=== PATIENT | female | born 1985 | race Caucasian/White ===

== ENCOUNTER 2021-10-12 07:57 | Outpatient (CLI) | payer BC, SELFPAY ==
--- NOTE | 2021-10-12 08:15 | CRLHL7_ITS ---
For Patients: As a result of the Cures Act, medical imaging exams and procedure reports are released immediately into your electronic medical record. You may view this report before your referring provider. If you have questions, please contact your health care provider. INDICATION: First trimester scan, establish dates. COMPARISON: None. TECHNIQUE: Real-time nichole-scale imaging of the pelvis was performed. FINDINGS: Sonographic imaging demonstrates a single living intrauterine gestation. The embryo demonstrates a regular cardiac rate measuring 71 beats per minute. The embryo`s crown-rump length measurement of 1.8 cm corresponds to a gestational age of 8 weeks 2 days with a sonographic due date of 05/22/2022. There is a normal-appearing yolk sac. There are no gross abnormalities noted within the embryo at this early state of development. The gestational sac has a normal appearance. There is no evidence of a perigestational hemorrhage. The amount of fluid within the sac appears appropriate for gestational age. The cervix is closed. The myometrium appears normal. Normal left ovary. Right ovary enlarged measuring 5.5 x 4.1 cm. Complex heterogeneously hyperechoic cyst right ovary measuring 5.0 x 4.3 x 4.8 cm. Free fluid noted within the left adnexa. IMPRESSION: Single living intrauterine with sonographic gestational age 8 weeks 2 days and sonographic due date 05/22/2022. Complex right ovarian cyst measuring 5 cm, possibly representing a dermoid. Dictated by Brannon Baig MD @ 10/12/2021 9:22:28 AM (Electronically Signed)
== END 2021-10-12 07:58 | disposition home or self-care (01) ==
LOC: US 07:59
PROVIDERS: Visit Provider Advanced Practice Midwife
DX: Z34.91 Encounter for supervision of normal pregnancy, unspecified, first trimester (principal); O34.81 Maternal care for other abnormalities of pelvic organs, first trimester; N83.291 Other ovarian cyst, right side; Z3A.08 8 weeks gestation of pregnancy
CPT/HCPCS: 76817

== ENCOUNTER 2021-10-12 09:53 | Outpatient (CLI) | payer BC, SELFPAY ==
[2021-10-12 13:13] LABS: Hepatitis B Surface Antigen* Negative (Negative)
[2021-10-12 13:30] LABS: Hepatitis C Virus Antibody* Negative (Negative)
[2021-10-12 13:40] LABS: HIV 1/2/P24 Combo Screen* Negative (Negative)
[2021-10-12 14:15] LABS: Chlamydia DNA Amplified* NOT DETECTED (No Detected); GC DNA Amplified* NOT DETECTED (No Detected)
[2021-10-14 01:07] LABS: Rubella Antibody IgG 8.6 IU/mL
[2021-10-14 01:19] LABS: Rapid Plasma Reagin (RPR) Non Reactive (Non Reactive)
== END 2021-10-12 09:54 | disposition home or self-care (01) ==
PROVIDERS: Visit Provider Advanced Practice Midwife
DX: Z34.91 Encounter for supervision of normal pregnancy, unspecified, first trimester (principal); O34.81 Maternal care for other abnormalities of pelvic organs, first trimester; N83.291 Other ovarian cyst, right side; Z3A.08 8 weeks gestation of pregnancy
CPT/HCPCS: 76817; 86592; 86703; 86762; 86803; 86850; 86900; 86901; 87086; 87340; 87491; 87591

== ENCOUNTER 2022-01-09 10:46 | Outpatient (CLI) | payer BC, SELFPAY ==
--- NOTE | 2022-01-09 11:00 | CRLHL7_ITS ---
For Patients: As a result of the Century Cures Act, medical imaging exams and procedure reports are released immediately into your electronic medical record. You may view this report before your referring provider. If you have questions, please contact your health care provider. INDICATION: Evaluate anatomy. COMPARISON: 10/12/2021 TECHNIQUE: Real time nichole scale imaging of the fetus was performed as well as color Doppler analysis of the umbilical vessels. FINDINGS: Sonographic imaging demonstrates a single living intrauterine gestation. Fetus demonstrates a regular cardiac rate of 150 beats per minute. Fetus has a vertex position. The placenta lies posteriorly. The edge of the placenta is located 1.7 cm from the internal cervical os on transvaginal imaging. Amniotic fluid volume appears normal. Single deepest vertical pocket: 4.6 cm. The cervix is closed and measures 3.0 cm in length. The composite ultrasound gestational age is calculated at 21 weeks 2 days with an estimated sonographic due date of 05/20/2022. The estimated weight is 375 grams which lies at the 20th %. The following biometric measurements were obtained: Biparietal diameter: 4 point a cm/20 weeks 3 days 15th% Head circumference: 18.4 cm/20 weeks 6 days 20th% Abdominal circumference: 15.6 cm/20 weeks 5 days 26th% Femur length: 3.4 cm/20 weeks 6 days 25th% The HC/AC ratio measures: 1.18 range (1.06-1.24) On anatomic survey, there is a normal appearance of the cerebral ventricles, cavum septi pellucidi, cisterna magna and cerebellum. The nose, lips, and facial profile appear normal. The cervical, thoracic and lumbar spine are well visualized and appear normal. There is a normal four-chamber heart view and the left and right ventricular outflow tracts appear normal. The diaphragm and stomach appear normal. The kidneys and bladder also appear normal. There is a normal three-vessel cord and cord insertion site. The four extremities appear normal. IMPRESSION: Normal OB ultrasound exam with concordance of clinical and sonographic dating. No intrinsic abnormalities noted on anatomic survey. Dictated by Brannon Baig MD @ 01/09/2022 12:22:46 PM (Electronically Signed)
== END 2022-01-09 10:47 | disposition home or self-care (01) ==
LOC: US 10:50
PROVIDERS: Visit Provider Advanced Practice Midwife
DX: Z34.92 Encounter for supervision of normal pregnancy, unspecified, second trimester (principal); Z3A.17 17 weeks gestation of pregnancy
CPT/HCPCS: 76805; 76817

== ENCOUNTER 2022-03-12 13:10 | Outpatient (CLI) | payer BC, SELFPAY ==
--- NOTE | 2022-03-12 13:00 | CRLHL7_ITS ---
For Patients: As a result of the Cures Act, medical imaging exams and procedure reports are released immediately into your electronic medical record. You may view this report before your referring provider. If you have questions, please contact your health care provider. INDICATION: Low lying placenta. TECHNIQUE: Ultrasound OB pelvis transabdominal and transvaginal. Real time nichole scale imaging of the fetus was performed. COMPARISON: None. FINDINGS: Sonographic imaging demonstrates a single living intrauterine gestation. Fetus demonstrates a regular cardiac rate of 150 beats per minute. Fetus has a vertex orientation. The placenta lies posteriorly without evidence of placenta previa. The placenta is noted to be low lying with the placental edge approximately 3.9 cm from the internal os. Amniotic fluid volume appears normal. Single deepest vertical pocket: 3.8 cm. The composite ultrasound gestational age is calculated at 29 weeks 4 days with an estimated sonographic due date of 05/24/2022. The estimated weight is 1409 grams which lies at the 19%. The following biometric measurements were obtained: Biparietal diameter: 7.3 cm, 29 weeks 1 day Head circumference: 27.4 cm, 30 weeks Abdominal circumference: 24.9 cm, 29 weeks 1 day Femur length: 5.7 cm, 30 weeks IMPRESSION: 1. Single living intrauterine gestation. Composite ultrasound gestational age of 29 weeks 4 days with estimated sonographic due date of 05/24/2022. 2. Low-lying placenta with placental edge approximately 3.9 cm from the internal os. Recommend attention on follow-up imaging. Dictated by Román Arana MD @ 03/14/2022 8:01:40 PM (Electronically Signed) ----- ADDENDUM ----- ADDENDUM: The placenta lies 3.9 cm from the os. This is within normal limits and not low- lying. Dictated by Román Arana MD @ Mar 27 2022 9:15AM Signed by:?Román Arana MD @03/14/2022 8:01:40 PM (Electronic Signature)
== END 2022-03-12 13:11 | disposition home or self-care (01) ==
LOC: US 13:11
PROVIDERS: Visit Provider Physician Assistant
DX: O44.42 Low lying placenta NOS or without hemorrhage, second trimester (principal)
CPT/HCPCS: 76816; 76817; 86592

== ENCOUNTER 2022-03-22 08:57 | Outpatient (CLI) | payer BC, SELFPAY ==
[2022-03-22 09:06] LABS: Glucose Fasting Check 73 mg/dl (60-115)
[2022-03-22 12:40] LABS: Glucose 1 Hour Gest 166 mg/dl (70-180)
[2022-03-22 12:41] LABS: Glucose GTT-Gestational 3 Hr 72 mg/dl (70-140)
== END 2022-03-22 08:58 | disposition home or self-care (01) ==
LOC: NFLDREF 08:57
PROVIDERS: Visit Provider Advanced Practice Midwife
DX: Z34.93 Encounter for supervision of normal pregnancy, unspecified, third trimester (principal); Z3A.32 32 weeks gestation of pregnancy
CPT/HCPCS: 82951; 82952

== ENCOUNTER 2022-04-12 21:56 | Outpatient (CLI) | payer BC, SELFPAY ==
[2022-04-12 22:30] VITALS: BP 124/74; PULSE 71; RESP 16; TEMP 36.8
[2022-04-12 22:49] LABS: Appearance Urine Clear (Clear); Bilirubin Urine Negative (Negative); Blood Urine Trace-intact (Negative); Color Urine Yellow (Yellow); Glucose Urine Negative (Negative); Ketones Urine Negative (Negative); Leukocyte Esterase Urine Negative (Negative); Nitrite Urine Negative (Negative); Protein Urine Negative (Negative); Urobilinogen Urine 0.2 (0.2-1.0); pH Urine 6.5 (5.0-8.5)
[2022-04-12 23:00] LABS: Amorphous Sediment Urine Few; Bacteria Urine Few; RBC Urine 0-2 (0-2); Squamous Epithelial Cell Urine Few (None-Few); WBC Urine 0-2 (0-5)
--- NOTE | 2022-04-12 23:20 | CRLHL7_ITS ---
For Patients: As a result of the Cures Act, medical imaging exams and procedure reports are released immediately into your electronic medical record. You may view this report before your referring provider. If you have questions, please contact your health care provider. INDICATION: Right sided flank, abdominal pain TECHNIQUE: Ultrasound abdomen limited. Sonographic images of the right upper quadrant were obtained using nichole-scale and color Doppler images. COMPARISON: None FINDINGS: Liver: The liver parenchyma is normal in echotexture. Gallbladder: No gallstones or sludge seen in the lumen. The gallbladder wall is normal in appearance. No pericholecystic fluid is present. No sonographic Fierro???s sign is present. Common bile duct: 4 mm. No intrahepatic biliary ductal dilatation seen. Pancreas: The visualized portions of the pancreatic head and body are normal in appearance. Right Kidney: 11.3 cm. Trace right renal pelviectasis is seen. Vascular: The visualized abdominal aorta and IVC are unremarkable. The visualized portal vein is patent with normal anterograde flow. Miscellaneous: There is a heterogeneous echogenic oval lesion in the right lower quadrant measuring 5 x 3.8 cm. IMPRESSIONS: 1. Trace right renal pelviectasis is seen. 2. There is a heterogeneous echogenic oval lesion in the right lower quadrant measuring 5 x 3.8 cm. Assessment with outpatient pelvic MRI or CT is recommended. Dictated by Russell Castillo MD @ 04/13/2022 1:38:42 AM Dictated by: Russell Castillo MD @ 04/13/2022 01:38:45 (Electronically Signed)
--- NOTE | 2022-04-13 00:12 | P.OBO_ITS ---
OB Outpatient HPI History of Present Illness History of Present Illness: Angelica is a 36 yo at 34 5/7 weeks gestation by LMP, ZACHARY 05/20/2022, presents with right lower/mid back pain that wraps around her abdomen. It started around noon today and has increased in intensity throughout the day and is more wave like. Since arrival she has noted more pain in her front lower abdomen and less in her back. She is voiding, has more frequency but feels this is related to . She denies other UTI concerns including burning, itching, blood, or urgency. She is rating the pain 6/10. She denies any abnormal vaginal discharge. She also denies fevers, chills, body aches, and n/v. She denies noticing contractions. Patient reports she has been taking tums for heartburn and does take a daily calcium supplement. Last took tums about 2 weeks ago. On evaluation post US, she report symptoms have remained minimally changed but more lower right abdominal pain than back pain. OB PROBLEM LIST 1. Rubella NON immune. Needs vaccine PP 2. Hx of breast augmentation, under the muscle, nipple intact 3. Low lying placenta, 1.7 cm from internal os. RESOLVED F/u US 28 weeks: Resolved: 3.9cm from OS on 03/12/22. Waiting on radiology to correct documentation for resolved low-lying. Baby moving naturally: Yes Bleeding: No Contractions: No Leaking fluid: No Discharge: No Heartburn: No Back pain: Yes (wave like) Meds Home Medications and Allergies Home Medications Medication Instructions Recorded Confirmed Type prenat.vits,joni,uzy-vpvy-tlzmb 1 tab PO QDAY 10/12/21 04/12/22 History calcium citrate 200 mg (950 mg) 650 mg PO QDAY 11/09/21 04/12/22 History tablet ferrous sulfate 325 mg (65 mg 325 mg PO Q OTHER DAY 03/26/22 04/12/22 History iron) tablet Allergies Allergy/AdvReac Type Severity Reaction Status Date / Time seasonal Allergy Mild Congested Uncoded 04/10/22 14:13 [facility] Surgical History (Updated 10/17/21 @ 11:07 by Elsy Roberson CNM) H/O breast augmentation Family History (Updated 10/17/21 @ 11:11 by Elsy Roberson CNM) Mother Breast cancer Father Clotting disorder Paternal Grandfather Leukemia Maternal Grandfather Dementia Social History Smoking Status: Never smoker Little interest or pleasure in doing things: not at all Feeling down, depressed, or hopeless: not at all History History 1 Elective abortions 0 Para 0 Spontaneous abortions 0 Hx # Term Pregnancies 0 Ectopic pregnancies Hx # Pregnancies 0 Multiple births Number of Living Children OB - H&P: Exam Physical Exam Vital signs: Pulse BP 71 124/74 04/12/22 22:30 04/12/22 22:30 Narrative: Pulse Rate 71 04/12/22 22:30 Blood Pressure 124/74 04/12/22 22:30 Blood Pressure Mean 90 04/12/22 22:30 Constitutional Constitutional: moderate distress, average body habitus and cooperative Comments: Calm between waves of pain Routine HEENT Exam Head: Present atraumatic Routine Abdominal Exam Abdominal: Present soft and tenderness (Right lower abdomen to midline pelvis); Absent rebound Detailed Labor and Delivery Exam Patient Gravid: Yes Comments: Irritability noted on external contraction monitor Fetus (Single) Amniotic Membrane Status: intact Heart Rate Baseline: 130 Monitor Accelerations: Present Monitor Decelerations: None Mcfp Variability: Moderate (6-25) Routine Back/Spine/Pelvis Exam Back/Spine: full ROM Routine Skin Exam Present intact Routine Neurological Exam Present alert and oriented X3 Routine Psychiatric Exam Present normal affect and normal thought process Labs Labs Laboratory Tests WBC 9.75 K/uL (4.50-11.00) 04/13/22 01:15 RBC 3.44 m/uL (4.00-5.20) L 04/13/22 01:15 Hgb 10.8 gm/dL (12.0-16.0) L 04/13/22 01:15 Hct 31.9 % (33.0-51.0) L 04/13/22 01:15 MCV 93 fL (80-100) 04/13/22 01:15 MCH 31 pg (26-34) 04/13/22 01:15 MCHC 34 gm/dL (32-36) 04/13/22 01:15 RDW Coeff of Wolfgang 12.4 % (11.5-15.5) 04/13/22 01:15 Plt Count 235 K/uL (140-440) 04/13/22 01:15 Neut % (Auto) 76.1 % (42.0-72.0) H 04/13/22 01:15 Lymph % (Auto) 17.4 % (20-44) L 04/13/22 01:15 [place] % (Auto) 5.3 % (0.0-11.0) 04/13/22 01:15 Eos % (Auto) 0.6 % (0.0-7.0) 04/13/22 01:15 Baso % (Auto) 0.2 % (0.0-3.0) 04/13/22 01:15 Neut # (Auto) 7.40 K/uL (1.7-7.0) H 04/13/22 01:15 Lymph # (Auto) 1.70 K/uL (0.90-2.90) 04/13/22 01:15 [place] # (Auto) 0.50 K/UL (0.00-0.90) 04/13/22 01:15 Eos # (Auto) 0.06 K/uL (0.00-0.50) 04/13/22 01:15 Baso # (Auto) 0.02 K/uL (0.00-0.30) 04/13/22 01:15 Urine Color Yellow (Yellow) 04/12/22 22: Urine Appearance Clear (Clear) 04/12/22 22: Urine pH 6.5 (5.0-8.5) 04/12/22 22:32 Ur Specific [place] 1.020 (1.000-1.030) 04/12/22 22:32 Urine Protein Negative (Negative) 04/12/22 22: Urine Glucose (UA) Negative (Negative) 04/12/22 22:32 Urine Ketones Negative (Negative) 04/12/22 22:32 Urine Blood Trace-intact (Negative) A 04/12/22 22: Urine Nitrite Negative (Negative) 04/12/22: Urine Bilirubin Negative (Negative) 04/12/22 22: Urine Urobilinogen 0.2 (0.2-1.0) 04/12/22 22:32 Ur Leukocyte Esterase Negative (Negative) 04/12/22 22:32 Urine RBC 0-2 (0-2) 04/12/22 22:32 Urine WBC 0-2 (0-5) 04/12/22 22:32 Ur Squamous Epith Cells Few (None-Few) 04/12/22 22:32 Amorphous Sediment Few (None) A 04/12/22 22:32 Urine Bacteria Few (None) A 04/12/22 22:32 Assessment and Plan Assessment and plan (1) Hydronephrosis of right kidney: Problem comment: Mild Status: Acute (2) Kidney stone complicating : Status: Acute (3) Acute flank pain: Status: Acute (4) Lower abdominal pain: Status: Acute Plan Assessment Hydronephrosis of right kidney, mild Suspected Kidney stone Acute flank pain Lower abdominal pain Plan Urine analysis and bedside US for suspected kidney stone. Consistent finding without actual visualization of stone(s), could be in ureter or moving through renal system. Reviewed this with patient. Recommended increased oral hydrations for next 24-48 hours to flush stone out, straining urine, and pain medications as needed. She declines them at this time. Ultrasound report shows mild hydronephrosis, no other abnormal findings with exception of echogenic area in right ovary, consistent with previous US findings and unchanged. Can not entirely rule out other causes of abdominal pain including appendicitis but unlikely given labs and US findings. Reviewed warning s/sx of infection, worsening pain, or increasing associated symptoms such as n/v. Instructed when to seek emergent care. Recommended follow- up in clinic next week. Can consider referral to nephrology if symptoms have not improved with oral hydration. Discussed work note with patient, feels she does not need at this time but will reach out if she does need one. Time Spent with Patient Time with Patient: less than 15 minutes Imaging Imaging Imaging: Abdominal Ultrasound FINDINGS: Liver: The liver parenchyma is normal in echotexture. Gallbladder: No gallstones or sludge seen in the lumen. The gallbladder wall is normal in appearance. No pericholecystic fluid is present. No sonographic Fierro???s sign is present. Common bile duct: 4 mm. No intrahepatic biliary ductal dilatation seen. Pancreas: The visualized portions of the pancreatic head and body are normal in appearance. Right Kidney: 11.3 cm. Trace right renal pelviectasis is seen. Vascular: The visualized abdominal aorta and IVC are unremarkable. The visualized portal vein is patent with normal anterograde flow. Miscellaneous: There is a heterogeneous echogenic oval lesion in the right lower quadrant measuring 5 x 3.8 cm. IMPRESSIONS: 1. Trace right renal pelviectasis is seen. 2. There is a heterogeneous echogenic oval lesion in the right lower quadrant measuring 5 x 3.8 cm. Assessment with outpatient pelvic MRI or CT is recommended. Dictated by Russell Castillo MD @ 04/13/2022 1:38:42 AM For comparison, Previous 1st trimester US (10/12/2021) IMPRESSION: Single living intrauterine with sonographic gestational age 8 weeks 2 days and sonographic due date 05/22/2022. Complex right ovarian cyst measuring 5 cm, possibly representing a dermoid. Dictated by Brannon Baig MD @ 10/12/2021 9:22:28 AM
[2022-04-13 01:21] LABS: Basophils Absolute Auto 0.02 K/uL (0.00-0.30); Basophils Percent Auto 0.2 % (0.0-3.0); Eosinophils Absolute Auto 0.06 K/uL (0.00-0.50); Eosinophils Percent Auto 0.6 % (0.0-7.0); Hematocrit 31.9 % (33.0-51.0); Hemoglobin* 10.8 gm/dL (12.0-16.0); Immature Granulocytes Abs Auto 0.04 K/uL (0.00-0.30); Immature Granulocytes Pct Auto 0.4 %; Lymphocytes Percent Auto 17.4 % (20-44); Mean Corpuscular HGB Conc 34 gm/dL (32-36); Mean Corpuscular Hemoglobin 31 pg (26-34); Mean Corpuscular Volume 93 fL (80-100); Monocytes Percent Auto 5.3 % (0.0-11.0); Neutrophils Percent Auto 76.1 % (42.0-72.0); Platelet Count* 235 K/uL (140-440); RDW Coefficient of Variation % 12.4 % (11.5-15.5); Red Blood Count 3.44 m/uL (4.00-5.20); White Blood Count* 9.75 K/uL (4.50-11.00)
[2022-04-13 01:23] LABS: Slide Review Reflex No
--- NOTE | 2022-04-13 02:06 | PC.OBNST ---
NST Note NST Note Start: 04/12/22 22:15 Freq: ONCE Status: Active Protocol: Document 04/13/22 02:04 AM (Rec: 04/13/22 02:06 AM [id number]) NST Note 1 Para (# of births) 0 EDC 05/20/22 Gestational Age In Weeks & Days 34 Weeks & 5 Days Patient Presented with Complaint(s) of Pain If Pain, describe location Right flank to anterior abd pain. Reactive Yes Appropriate for Gestational Age Yes RN Gabby RNC Date 04/13/22 Reactive Yes Appropriate for Gestational Age Yes RN Dusty RN Date 04/13/22 OB NST charge Yes Complete NST Note via Write Note Yes The provider's electronic signature indicates the NST is reactive/appropriate for gestational age. *Note to provider: If an addendum is required, open the patient's chart and click on the note under the Nurse/Allied Health tab.
== END 2022-04-13 02:00 | disposition home or self-care (01) ==
LOC: OB OUT 21:57 → OB 21:59
PROVIDERS: Visit Provider Advanced Practice Midwife
DX: O44.43 Low lying placenta NOS or without hemorrhage, third trimester (principal); Z3A.29 29 weeks gestation of pregnancy
CPT/HCPCS: 36415; 59025; 76705; 81003; 81015; 85025; 87086; 99213

== ENCOUNTER 2022-04-23 15:52 | Outpatient (CLI) | payer BC, SELFPAY ==
[2022-04-24 13:42] LABS: Strep B DNA Probe NEGATIVE (Negative)
[2022-04-24 13:44] LABS: Strep B Pen/Amox Allergy No
== END 2022-04-23 15:53 | disposition home or self-care (01) ==
LOC: NFLDREF 15:53
PROVIDERS: Visit Provider Advanced Practice Midwife
DX: Z34.03 Encounter for supervision of normal first pregnancy, third trimester (principal)
CPT/HCPCS: 87081; 87653

== ENCOUNTER 2022-05-06 06:52 | Outpatient (CLI) | payer BC, SELFPAY ==
[2022-05-06 07:04] VITALS: PULSE 70; O2SAT 99
[2022-05-06 07:07] VITALS: BP 106/65; PULSE 74; TEMP 36.6
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
== END 2022-05-06 10:10 | disposition home or self-care (01) ==
LOC: OB OUT 06:53 → OB 06:53
PROVIDERS: Visit Provider Advanced Practice Midwife
DX: O36.5930 Maternal care for other known or suspected poor fetal growth, third trimester, not applicable or unspecified (principal); Z3A.36 36 weeks gestation of pregnancy
CPT/HCPCS: 59025; 99213

== ENCOUNTER 2022-05-07 09:57 | Outpatient (CLI) | payer BC, SELFPAY ==
--- NOTE | 2022-05-07 10:15 | CRLHL7_ITS ---
For Patients: As a result of the Century Cures Act, medical imaging exams and procedure reports are released immediately into your electronic medical record. You may view this report before your referring provider. If you have questions, please contact your health care provider. INDICATION: Third trimester scan, evaluate growth. small for gestational age COMPARISON: 03/12/2022 TECHNIQUE: Real time nichole scale imaging of the fetus was performed. FINDINGS: Sonographic imaging demonstrates a single living intrauterine gestation. Fetus demonstrates a regular cardiac rate of 129 beats per minute. Fetus has a vertex position. The placenta lies fundal posterior. Amniotic fluid volume appears normal and there is a single deepest vertical pocket: 6.6 cm. The estimated weight is 2966gm which lies at the 24th %. On the prior OB ultrasound exam dated 03/12/2022 the estimated weight was at the 19th%. BPD 24th percentile. HC 26th percentile. AC 25th percentile. FL 8th percentile. The HC/AC ratio measures 1.02 range (0.92-1.06). IMPRESSION: Sonographic gestational age 36 weeks 5 days and sonographic due date 05/30/2022. Sonographic age 10 days behind the clinical age. Estimated weight 24th percentile. Abdominal circumference 25th percentile. Dictated by Brannon Baig MD @ 05/07/2022 11:46:46 AM (Electronically Signed)
== END 2022-05-07 09:58 | disposition home or self-care (01) ==
LOC: US 09:57
PROVIDERS: Visit Provider Advanced Practice Midwife
DX: O36.5930 Maternal care for other known or suspected poor fetal growth, third trimester, not applicable or unspecified (principal); Z3A.36 36 weeks gestation of pregnancy
CPT/HCPCS: 76816

== ENCOUNTER 2022-05-26 00:26 | Inpatient (IN) | payer BC, SELFPAY ==
[2022-05-26] VITALS (27 sets, daily range): BP systolic 79–138; BP diastolic 38–105; PULSE 61–137; RESP 16–18; TEMP 36.5–36.9; O2SAT 96
--- NOTE | 2022-05-26 00:25 | P.LDBA_ITS ---
Documented by User: Beck Muñoz 05/26/22 00:40 Subjective History of Present Illness Date Seen: 05/26/22 Narrative: Angelica is being admitted to Labor and Delivery for labor. She is a 36 year old at 40.6 weeks gestation. Contractions began on 05/25/22 around 0900, she denies leaking of fluid is supported by her partner and a alternative education teacher. Her full history and physical done 05/01/22 by Sindhu Roland CNM 1. Rubella NON immune. Needs vaccine PP 2. Hx of breast augmentation, under the muscle, nipple intact 3. Low lying placenta, 1.7 cm from internal os. RESOLVED F/u US 28 weeks: Resolved: 3.9cm from OS on 03/12/22. 4. Kidney stone, RESOLVED 04/17/2022. Seen in OB triage, home measures for relief 5. Measuring small for dates 05/07/2022: EFW 24%ile OB - Problem Based A/P Additional Plan (1) 40 weeks gestation of : Status: Acute (2) Pain during labor: Status: Acute (3) [id number] fetus: Status: Acute Plan ASSESSMENT:? 36 at 40.6 weeks gestation? complicated by:?Rubella nonimmune, measuring small for dates, Hx of breast augmentation, kidney stones during Labor type: Spontaneous, Early labor? Category 1 FHR pattern.?? Labor complicated by: NA? GBS negative? ? PLAN:? 1. Routine intrapartum cares as ordered. Continue with expectant management? 2. Monitoring per policy, intermittent? 3. Planning unmedicated . Desires water . Consent signed. Hep C negative. Candidate for analgesia of choice.?? 4. Patient encouraged to reposition and ambulate to promote physiologic labor and .? 5. Anticipate Delivery/Labor/Induction Plan Plan: expectant management OB Exam Physical Exam Vital signs: Pulse BP Pulse Ox 66 114/72 96 05/26/22 00:01 05/26/22 00:01 05/26/22 00:01 Narrative: Vitals Reviewed? Psychiatric:? Alert and oriented x3? HEENT:? Normocephalic, atraumatic? Neck:? Supple?? Lungs:? Clear to auscultation bilaterally? Heart:? Regular rate and rhythm, no murmur, rub or gallop? Abdomen:? Soft, nontender, and gravid. Vertex by Rasta's, confirmed with cervical exam.? Extremities:? No edema or erythema Detailed Labor and Delivery Exam Patient Gravid: Yes Dilation (cm): 3 Effacement (%): 80 Contraction Frequency: 3-5 Contraction duration (sec): 60 Tachysystole: No Fetus (Single) Station: 0 Amniotic Membrane Status: intact Heart Rate Baseline: 140 Monitor Accelerations: Present Monitor Decelerations: None Outbound Sales Professional Variability: Moderate (6-25) Documented by User: Elsy Roberson CNM 05/26/22 00:52 Subjective History of Present Illness Narrative: Angelica is being admitted to Labor and Delivery for labor. She is a 36 year old at 40.6 weeks gestation. Contractions began on 05/25/22 around 0900, she denies leaking of fluid. Is supported by her partner and a alternative education teacher. Her full history and physical done 05/01/22 by Sindhu Roland CNM 1. Rubella NON immune. Needs vaccine PP 2. Hx of breast augmentation, under the muscle, nipple intact 3. Low lying placenta, 1.7 cm from internal os. RESOLVED F/u US 28 weeks: Resolved: 3.9cm from OS on 03/12/22. 4. Kidney stone, RESOLVED 04/17/2022. Seen in OB triage, home measures for relief 5. Measuring small for dates 05/07/2022: EFW 24%ile OB - Problem Based A/P Additional Plan (1) 40 weeks gestation of : Status: Acute (2) Pain during labor: Status: Acute (3) [id number] fetus: Status: Acute OB Exam Detailed Labor and Delivery Exam Dilation (cm): 3 (per RN) Cervix position: posterior
[2022-05-26 02:56] LABS: SARS PCR* Negative SARS-CoV-2 (Negative)
--- NOTE | 2022-05-26 03:32 | P.OBPN_ITS ---
Subjective Date Seen: 05/26/22 Narrative: Angelica continues to labor with the support of her partner and manager continuous improvement. She is coping well with contractions. Continues to move around and change positions frequently to facilitate physiologic changes of . She was walking in the room and breathing through contractions at this time. Declined a cervical exam at this time, she is hoping to have a water and waiting for the tub room to be available. We discussed potentially doing a cervical exam when she is abl e to move to that room which should be in a few hours. Membranes remain intact. Objective Exam: Objective:?? Constitutional: Alert and oriented x3, moderate distress, coping well? Vital signs stable, see nurse documentation?? Abdomen: gravid, contractions palpate moderate with contractions and soft between Vital Signs: Last Vital Signs Pulse 66 05/26/22 00:01 BP 114/72 05/26/22 00:01 Pulse Ox 96 05/26/22 00:01 Pelvic Exam Comments: Pt declined exam at this time Contractions Monitor mode: Palpation Contraction Frequency: 2-4 Contraction pattern: Regular Contraction intensity: Moderate Assessment Assessment: active labor Station: 0 Heart Rate Baseline: 140 Monitor Decelerations: None Tracing Comments: intermittent monitoring per protocol Plan Plan: ASSESSMENT:? 36 at 40.6 weeks gestation? complicated by:?Rubella nonimmune, measuring small for dates, Hx of breast augmentation, kidney stones during Labor type: Spontaneous, Early labor? FHR by intermittent monitoring ?? Labor complicated by: NA? GBS negative? ? PLAN:? 1. Routine intrapartum cares as ordered. Continue with expectant management? 2. Monitoring per policy,? intermittent? 3. Planning unmedicated . Desires water . Consent signed. Hep C negative. Candidate for analgesia of choice.?? 4. Patient encouraged to reposition and ambulate to promote physiologic labor and .? 5. Anticipate
--- NOTE | 2022-05-26 10:23 | PM.OBPNL ---
Subjective Time Seen by Provider: 10: Date Seen: 05/26/22 Narrative: Angelica is coping well with labor pain/contractions. 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 She is currently resting in the tub. She would like to continue with nonpharmacologic methods for comfort and pain management.??She states ctx feel stronger and closer together and does feel pushy at times. Recommended a SVE, as she has not been checked since last night. Reviewed risks of maternal and fatigue if she is not making progress. She declines at this time. Objective Exam: VSS, afebrile General Appearance:? Calm, cooperative. No acute distress. ? Psychiatric Exam: Alert and oriented, appropriate affect Abdomen: Gravid Ctx: ?Q 2-4 min apart. ? Moderate FHTs: WNL by doppler per RN SVE: declined Membranes: Intact ? Vital Signs: Last Vital Signs Temp 97.7 F 05/26/22 07:31 Pulse 71 05/26/22 09:18 Resp 18 05/26/22 03:30 BP 116/67 05/26/22 09:18 Pulse Ox 96 05/26/22 00:01 Plan Plan: Assessment:?? at 40.6 gestation?? GBS negative Patient is coping well with challenges of labor.?? Labor type: Spontaneous complicated by: -Rubella NON immune.??Needs?vaccine PP -Hx of breast augmentation, under the muscle, nipple intact -Low lying placenta,RESOLVED - Kidney stone, RESOLVED -Measuring small for dates: 05/07/2022: EFW 24%ile Labor complicated by: Possible slow progress. Unable to assess r/t declined SVE. Ctx did seem closer and more intense as I continued at the bedside. ? Plan:?? Continue with routine intrapartum cares as ordered.?? Patient encouraged to move and change positions to promote physiologic labor and .?? Nonpharmacologic comfort measures per patient preference. Candidate for analgesia of choice if desired. Patient planning waterbirth Anticipate progress to NVD.
--- NOTE | 2022-05-26 14:01 | P.OBPN_ITS ---
Subjective Time Seen by Provider: 14:01 Date Seen: 05/26/22 Narrative: Angelica is overall coping well with labor pain/contractions. Her partner and cut off saw tender metal are with her for support. Contractions appear to be increasing in intensity, and she is c/o of increased pressure. She is requesting nitrous to assist with pain management, and agrees to a SVE. Objective Exam: VSS, afebrile General Appearance:? Calm, cooperative. No acute distress. ? Psychiatric Exam: Alert and oriented, appropriate affect Abdomen: Gravid Ctx: ?Q 2-3 min apart. ? Strong FHTs: WNL by doppler per RN SVE: 6-8/100/+1 station. Difficult to confirm SVE, not tolerated well by pt. Membranes: Intact ? Vital Signs: Last Vital Signs Temp 98.1 F 05/26/22 12:17 Pulse 76 05/26/22 12:17 Resp 18 05/26/22 03:30 BP 122/70 05/26/22 12:17 Pulse Ox 96 05/26/22 00:01 Plan Plan: Assessment:?? at 40.6 gestation?? GBS negative Patient is coping well with challenges of labor.?? Labor type: Spontaneous, Active labor? Requesting nitrous ? Plan:?? May have nitrous for pain management Encouraged hands and knees position on jacob bag to allow for rest and to see if remaining cervix dilates to complete Continue with routine intrapartum cares as ordered.?? Nonpharmacologic comfort measures per patient preference. Candidate for analgesia of choice if desired. Patient planning waterbirth Anticipate progress to NVD.
[2022-05-26] MEDS: OXYTOCIN 10 UNIT/ML INJ IM (15:52)
[2022-05-26] MEDS: fentaNYL 100 MCG/2 ML inj IVP (17:08)
--- NOTE | 2022-05-26 17:18 | W.PM.OBVAGDE ---
OB Procedure Vag Delivery Mother Details Mother Details: The patient is a 36 year-old, 1, Para 0, admitted on 05/26/22 at 40.5 Days gestation. : 1 Para: 1 Weeks Gestation: 40.6 Admission Date: 05/25/22 Additional Details Amniotic Membrane Status: intact Amniotic Membrane Rupture Date: 05/26/22 Amniotic Membrane Rupture Time: 15:38 Amniotic Membrane Fluid Description: Clear Analgesia/Anesthesia Type: Nitrous Oxide Waterbirth: No Pitcoin: No Labor Onset: 13:00 Complete: 14:25 Pushin:25 Heart: heart tones during second stage were WNL per doppler by RN. Delivery Details Delivery Date: 05/26/22 Delivery Time: 15:38 Route of delivery: Gender: Male Viability: Alive; Heart Rate Present Position at Delivery: OA Delivery Details: Angelica continued to labor w/o intervention. Ctx slowly increasing in intensity throughout the day. Requested pain medication, SVE attempted, not tolerated well. Noted to be 6-8 cm/100/+1 station. Shortly after noted to be spontaneously trying to push. However, noted to be tightening pelvic floor and pulling away when ctx occurred and pressure was building. Pushed in multiple positions to help resolve this, including hands and knees, semi fowlers, tug of war, on the toilet. Progress finally noted when on birthing stool, and partner sitting behind her. Head delivered in good control. Nuchal arm noted, but unable to assess which arm. At 1538 a viable? male infant delivered in vertex OA presentation over intact perineum via spontaneous vaginal?delivery. ?Head delivered in good control. Nuchal arm noted, but unable to assess which arm. Membranes removed from infants head, and placed in mom's arms. Increased bleeding noted while sitting on the stool. Pitocin given IM, and assisted to the bed. ?Cord was clamped and cut after a 5+ minute delay.? Nose and mouth were bulb suctioned.? Infant weight pending. ? 8 at 1 minute and 8 at 5 minutes. ?Shoulder dystocia: no. ?Nuchal cord: no. Placenta delivered spontaneously at 1555 with a 3 vessel cord. Membranes slowly twisted and teased out, multiple times. Placenta calcified but appears complete. Upon assessment for lacerations, more membrane noted. Assessment for laceration attempted, difficult r/t pt intolerance and pulling away. Noted to be likely a deep 2nd degree. Dr. Madelyn Quijano called to bedside from home for further assessment. Discussion w/ pt, and decision made to go to the OR for D & C and repair. Mother and were stable after?delivery. Blood loss: 325 mL. prior to going to OR Blood loss measurement type: QBL? Sponge and needles counts are correct. 1 Minute Interval Total Score: 8 5 Minute Interval Total Score: 8 Additional Details Shoulder Dystocia: No Placenta Delivery Time: 15:55 Placental Delivery Description: Spontaneous Delivery repair: Vicryl Procedure Done: Global Blood Loss: 325 Laceration: Perineal - 2nd Degree (Deep, repair done in OR by Dr. Madelyn Quijano) Blood Loss Measurement Type: QBL Bakri Used: No Sponge/Need Count Correct: Yes Cord Vessel Description: 3 Vessels Event Summary Status: Mother and were stable after delivery. Disposition: floor
--- NOTE | 2022-05-26 17:30 | P.OBCN_ITS ---
Pt assessed and note done by Dr. Madelyn Quijano Documented by User: Elsy Roberson CNM 05/26/22 17:34 OB - CN: HPI Date of Consult Consult date: 05/26/22 History History 1 Elective abortions 0 Para 0 Spontaneous abortions 0 Hx # Term Pregnancies 0 Ectopic pregnancies Hx # Pregnancies 0 Multiple births Number of Living Children 0 PFSH PFSH Medical History (Updated 05/26/22 @ 17:35 by Marisel Faulkner MD) Acute flank pain ?R10.9 - Unspecified abdominal pain (ICD-10) Hydronephrosis of right kidney ?N13.30 - Unspecified hydronephrosis (ICD-10) Kidney stone complicating ?O26.839 - related renal disease, unspecified trimester (ICD-10) ?N20.0 - Calculus of kidney (ICD-10) Lower abdominal pain ?R10.30 - Lower abdominal pain, unspecified (ICD-10) Surgical History (Updated 10/17/21 @ 11:07 by Elsy Roberson CNM) H/O breast augmentation ?Z98.82 - Breast implant status (ICD-10) Family History (Updated 10/17/21 @ 11:11 by Elsy Roberson CNM) Mother Breast cancer Father Clotting disorder Paternal Grandfather Leukemia Maternal Grandfather Dementia Social History Smoking Status: Never smoker Little interest or pleasure in doing things: not at all Feeling down, depressed, or hopeless: not at all Meds Home Medications and Allergies Home Medications Medication Instructions Recorded Confirmed Type prenat.vits,joni,[id number] 1 tab PO QDAY 10/12/21 05/25/22 History ferrous sulfate 325 mg (65 mg 325 mg PO Q OTHER DAY 03/26/22 05/25/22 History iron) tablet Allergies Allergy/AdvReac Type Severity Reaction Status Date / Time seasonal Allergy Mild Congested Uncoded 05/22/22 14:54 OB - CN: A/P Assessment and Plan (1) Retained products of conception: Status: Acute Documented by User: Marisel Faulkner MD 05/26/22 17:35 OB - CN: HPI Date of Consult Time Seen by Provider: 17:31 Date Seen: 05/26/22 Consult date: 05/26/22 Requesting Physician: Elsy Roberson CNM Primary Care Provider: I was asked to see the patient by Elsy Roberson CNM to evaluate for possible retained membranes and evaluation of perineal laceration. The patient delivered via normal spontaneous vaginal delivery earlier today at approximately 3:38 p.m. at 41 weeks 0 days gestation. She had a boy. She does not tolerate exams due to exquisite pain. She had a spontaneous delivery of her placenta which appears complete but it does appear that there are membranes protruding from the vaginal introitus that were grasped with a ring forceps and attempted to be removed but tore. She was given 50 mg of fentanyl the x1 and the laceration appears to be a deep second-degree. Because of the concern for retained membranes I recommended going to the operating room for a dilation and curettage procedure with removal of membranes and repair of her laceration in the operating room so she can be comfortable and I can do a more complete exam. I will send everything ever moved to the lab for testing. History History 1 Elective abortions 0 Para 0 Spontaneous abortions 0 Hx # Term Pregnancies 0 Ectopic pregnancies Hx # Pregnancies 0 Multiple births Number of Living Children 0 Labs OB Labs: Lab Assessment Start: 05/26/22 00:35 Freq: ONCE Status: Active Protocol: PC.OBGBS Activity Type Activity Date Activity User E-sign Co-sign Detail Recorded Client Recorded Date Recorded By Document 05/26/22 07:33 KARSON [id number] 05/26/22 07:38 KARSON 05/26/22 07:33 Lab Assessment GBS Negative Previous with Invasive GBS No Does Patient Meet Criteria No No Treatment Needed OK Maternal Blood Type A Maternal RH Factor Positive Evaluate Maternal Rubella Immune Status Non-Immune Hepatitis B Surface Antigen Negative Maternal HIV Status Negative Maternal Syphillis (RPR) Status Negative Are Labs [facility] History (Updated 05/26/22 @ 17:35 by Marisel Faulkner MD) Acute flank pain ?R10.9 - Unspecified abdominal pain (ICD-10) Hydronephrosis of right kidney ?N13.30 - Unspecified hydronephrosis (ICD-10) Kidney stone complicating ?O26.839 - related renal disease, unspecified trimester (ICD-10) ?N20.0 - Calculus of kidney (ICD-10) Lower abdominal pain ?R10.30 - Lower abdominal pain, unspecified (ICD-10) Surgical History (Updated 10/17/21 @ 11:07 by Elsy Roberson CNM) H/O breast augmentation ?Z98.82 - Breast implant status (ICD-10) Family History (Updated 10/17/21 @ 11:11 by Elsy Roberson CNM) Mother Breast cancer Father Clotting disorder Paternal Grandfather Leukemia Maternal Grandfather Dementia Social History Smoking Status: Never smoker Little interest or pleasure in doing things: not at all Feeling down, depressed, or hopeless: not at all Meds Home Medications and Allergies Home Medications Medication Instructions Recorded Confirmed Type prenat.vits,joni,oat-oaes-ssrid 1 tab PO QDAY 10/12/21 05/25/22 History ferrous sulfate 325 mg (65 mg 325 mg PO Q OTHER DAY 03/26/22 05/25/22 History iron) tablet Allergies Allergy/AdvReac Type Severity Reaction Status Date / Time seasonal Allergy Mild Congested Uncoded 05/22/22 14:54 OB - H&P: Exam Physical Exam: Vital signs: Temp Pulse Resp BP Pulse Ox 98.1 F 77 18 97/59 L 96 05/26/22 12:17 05/26/22 17:30 05/26/22 03:30 05/26/22 17:30 05/26/22 00:01 OB - CN: A/P Assessment and Plan (1) Retained products of conception: Status: Acute Plan 1. Consent reviewed and signed for dilation and curettage, repair of perineal laceration(s)
[2022-05-26] MEDS: CEFAZOLIN 2 GM INJ IVP (17:36)
[2022-05-26] MEDS: LACTATED RINGERS 1000 ML 1,000 ML 100 ML IV ×2 (17:36→18:11)
[2022-05-26] MEDS: BUPIVACAINE 0.5% 30 ML 10 ML INJECTION (18:02)
--- NOTE | 2022-05-26 18:12 | SUR.OPER ---
PATIENT QUESTIONS ANSWERED SATISFACTORILY PREOPERATIVELY. PATIENT BROUGHT TO OR #4 PER CART. Patient positioned supine on OR #4 bed for the spinal. Pt. legs then moved into the lithotomy position for the procedure. Perioperative team supported arms bilaterally on arm boards. ? Final approval of positioning by surgeon.
--- NOTE | 2022-05-26 18:34 | P.PCN_ITS ---
Procedure Note Time Seen by Provider: 18:34 Date Seen: 05/26/22 Date of procedure: 05/26/22 Will [facility] bill your pro fee for this procedure?: Yes Procedure: Preoperative diagnosis: Angelica Smith is a 36-year-old 1 para 1 with suspected retained membranes after and 2nd degree perineal laceration with sulcus extension Postoperative diagnosis: Same Procedure: Suction curettage, second-degree perineal laceration repair, first- degree periurethral laceration repair Anesthesia: Conscious sedation, spinal, local Surgeon: Marisel Faulkner MD Net Mvc Developer: Not applicable IV fluid: 1000 mL Estimated blood loss: 150 mL Urine output: 150 by straight catheterization Specimen: Uterine contents to pathology Findings: On exam under anesthesia: the uterus was at the umbilicus and firm. A bedside ultrasound was performed and there appeared to be either blood clot or small piece of placenta at the fundus. There was not active bleeding. The cervix was dilated. A manual exam of the endometrial cavity did show some membranes that were removed manually but not completely. Adnexa were without mass or fullness palpable. On suction curettage there was some membranes that were sent to pathology. The second-degree laceration was broad based with a right sulcus extension and bilateral labial extensions. There was also a left periurethral first-degree laceration. Procedure: Sarah was taken to the operating room where spinal anesthetic was found to be adequate. She was placed in the dorsal lithotomy position and an exam under anesthesia was performed with with findings stated above. She was then prepped and draped in normal sterile manner. A weighted speculum was placed in the vagina to visualize the cervix. The anterior lip of the cervix was grasped with a ring forceps. A #14, curved curette advanced into the uterus and a curettage performed. Some membranes were noted to be removed and manual exam of the endometrium noted to have a smooth texture without evidence of retained placenta or membranes remaining. Two passes with the curette was performed. Attention was turned to performing the laceration repairs. The weighted speculum and ring forceps were removed. The skin edges were injected with 0.5% Marcaine without epinephrine: 10 mL was used. There was an excess piece of labial tissue that was removed to promote a repair. The right sulcus extension was repaired using 3-0 Vicryl suture in a running locked manner. The base of the remain second-degree laceration was brought together with 3-0 Vicryl suture and the remaining second-degree laceration was repaired in the usual manner. The bilateral labial extensions were repaired using 4-0 Vicryl in a running manner. The first-degree left periurethral laceration was repaired using 3-0 Vicryl in a running manner. Nothing was needed to obtain hemostasis. Excellent hemostasis was noted. The speculum was then removed from the vagina. The patient tolerated this procedure well. Sponge, lap and instrument counts were correct x2 the end of the procedure. The patient was awakened from sedation and taken to the recovery area in stable condition. The patient received 2 g IV Ancef prior to the procedure.
--- NOTE | 2022-05-26 18:50 | P.ANES_ITS ---
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
[2022-05-26] MEDS: IBUPROFEN 600 MG TABLET PO (21:37)
[2022-05-27 02:00] VITALS: BP 100/64; PULSE 69; RESP 16; TEMP 36.8; O2SAT 96
[2022-05-27 05:14] VITALS: BP 104/69; PULSE 69; RESP 16; TEMP 36.6; O2SAT 97
[2022-05-27 07:03] LABS: Hemoglobin* 9.7 gm/dL (12.0-16.0)
[2022-05-27 08:08] VITALS: BP 104/69; PULSE 78; RESP 16; TEMP 36.7; O2SAT 98
[2022-05-27] MEDS: ACETAMINOPHEN 500 MG TABLET 1000 MG PO (08:13)
--- NOTE | 2022-05-27 12:20 | P.OBPN_ITS ---
OB - PN:Subj Subjective Time Seen by Provider: 12:20 Date Seen: 05/27/22 Interval history: Angelica is a 36 y.o. who was admitted to [facility] for early labor. She had an NVD complicated by retained membranes and inability to tolerate laceration repair. Patient comments OB post-: no complaints, pain well controlled, tolerating diet and flatus present [place] status: doing well feeding status: exclusively Narrative: The patient feels well. The pain is well controlled with current medications. She has no new complaints. She is breast feeding and reports things have been somewhat of a struggle. Baby has been very sleepy.? the patient has done well.? Vitals have been stable.? She has remained afebrile.? Has a good appetite, is tolerating a general diet. She is voiding without difficulty.? She is passing gas and has had a bowel movement.? She is ambulating and denies any dizziness.? Has Small amount of rubra lochia. OB - PN: Obj Exam Physical Exam: Vital signs: Temp Pulse Resp BP Pulse Ox O2 Del Method 98.1 F 78 16 104/69 98 Room Air 05/27/22 08:08 05/27/22 08:08 05/27/22 08:08 05/27/22 08:08 05/27/22 08:08 05/27/22 08:08 Narrative: GENERAL APPEARANCE: normal affect, alert, no distress MOOD: appropriate HEENT: normocephalic, neck supple, full ROM CHEST: Symmetrical chest wall movement. Normal respiratory effort. Clear to auscultation HEART: regular rate and rhythm ABDOMEN: soft, non-tender. Uterine fundus is firm, 2 below Umbilicus, Midline and is appropriate for the stage of recovery. Bowel sounds present. PERINEUM: moderate edema of the perineum, there is a 2nd degree laceration with right sulcus extension and bilateral labial extensions that are healing well. EXTREMITIES: normal and trace edema OB - PN: Obj Data Labs Labs: Laboratory Results - last 24 hr 05/27/22 06:47 Hgb 9.7 L OB - PN: A/P Vaginal Delivery Assessment and Plan (1) Retained products of conception: Status: Acute Plan Plan: routine care Comments: G 1 P 1 status post NVD complicated by D & C for retained membranes, repair in the OR for extensive laceration and inability to tolerate repair. 1. Continue route PP cares 2. . May see if desired 3. Acute anemia. Iron supplement declined. 4. Anticipate discharge home tomorrow
[2022-05-27] MEDS: IBUPROFEN 600 MG TABLET PO ×2 (12:21→18:46)
[2022-05-27 12:49] VITALS: BP 93/63; PULSE 79; RESP 16; TEMP 36.7; O2SAT 98
[2022-05-27 16:26] VITALS: BP 96/64; PULSE 75; RESP 16; TEMP 36.7; O2SAT 98
[2022-05-28 00:15] VITALS: BP 94/63; PULSE 72; RESP 18; TEMP 36.6; O2SAT 98
[2022-05-28] MEDS: ACETAMINOPHEN 500 MG TABLET 1000 MG PO (03:06)
--- NOTE | 2022-05-28 07:21 | PM.OBDSVD1 ---
DS: Providers Provider Date Seen: 05/28/22 Date of admission: 05/26/22 00:26 Primary care physician: Not a Local Provider Admitting Clinician: Elsy Roberson CNM Attending Physician on discharge: Belén Simon CNM DS: Diagnosis Discharge Diagnosis (1) care and examination immediately after delivery: Status: Acute (2) Lactating mother: Status: Acute (3) Anemia due to acute blood loss: Status: Acute Exam Narrative: Exam Narrative: GENERAL APPEARANCE:? normal affect, alert, no distress MOOD:? appropriate CHEST:? clear to auscultation HEART:? regular rate and rhythm ABDOMEN:? soft, non-tender the uterine fundus is At Umbilicus, Midline and is appropriate for the stage of recovery. PERINEUM:? mild edema of the perineum, there is a Perineal Laceration,?2nd degree, that is healing well. EXTREMITIES:? normal and no edema Const: Vital Signs, click to edit/add: Vital Signs - 24 hr 05/27/22 08:08 05/27/22 12:49 05/27/22 16:26 Temperature 98.1 F 98.1 F 98.1 F Pulse Rate [Pulse Oximeter] 78 79 75 Respiratory Rate 16 16 16 Blood Pressure [Ri ght Arm] 104/69 93/63 96/64 Pulse Oximetry 98 98 98 Oxygen Delivery Me thod Room Air Room Air Room Air 05/28/22 00:15 Temperature 97.9 F Pulse Rate [Pulse Oximeter] 72 Respiratory Rate 18 Blood Pressure [Ri ght Arm] 94/63 Pulse Oximetry 98 Oxygen Delivery Me thod Room Air Documenting provider has reviewed patient's vital signs: yes OB - DS: Summary Hospital Course Hospital Course: Angelica is a 36 y.o. at 40 5/7 who was admitted to [facility] for spontaneous onset of labor. ?She had an complicated by retained placenta with D&C.?The patient feels well. She has hemoglobin of 9.7.?The pain is well controlled with current medications. ?She has no new complaints. ?She is breast feeding and reports things are going ok. the patient has done well.? Vitals have been stable.? She has remained afebrile.? Has a good appetite, is tolerating a general diet. ?She is voiding without difficulty.? She is passing gas and has not had a bowel movement.? She is ambulating and denies any dizziness.? Has Small amount of rubra lochia. ?She is undecided on prevention. Peripartum Data delivery method: Vaginal Laceration description: Perineal - 2nd Degree Procedures: Procedures Operation Date: 05/26/22 18:40 Actual Procedure Side Surgeon p SUCTION D&C, SECOND DEGREE PERINEAL Vaginal Laceration Repair, FIRST DEGREE LEFT PERIURETHERAL LACERATION REPAIR Marisel Faulkner MD complications: none Gender: Male Infant Discharge Plan: Home Status at Discharge Functional status at discharge: independent ambulation Overall status at discharge: patient is progressing back to baseline Time Spent with Patient Time attestation: Total time spent providing and/or coordinating discharge services: Discharge Plan Discharge Disposition: Home, Self-Care Date of Admission: 05/26/22 00:26 Attending Provider on Discharge: Belén Simon Primary Care Provider: Provider,Not a Local Condition: Stable Anticipated Discharge Date/Time: 05/28/22 12:00 Discharge Medications: New acetaminophen 500 mg Tablet 1,000 mg PO Q6H PRN (Reason: pain/fever) Qty: 0 0RF docusate sodium 100 mg Capsule 100 mg PO BID PRNQty: 90 0RF ibuprofen 600 mg Tablet 600 mg PO Q6H PRNQty: 60 0RF Continued prenat.vits,joni,[id number] Tablet 1 tab PO QDAY ferrous sulfate 325 mg (65 mg iron) tablet 325 mg PO Q OTHER DAY Discharge Orders: Discharge Order (Routine); Ordered 05/28/22 Ordered By: Belén Simon Patient Education: OB Over the Counter Medication Information, OB Vaginal/Breast Feeding Additional Instructions: Discharge instructions were reviewed with the patient including signs and symptoms of infection and home going medications Nothing vaginally for 6 weeks: no tampons or intercourse Do not drive while taking narcotic pain medication(s) Off Work or School for 6 weeks 2-week visit: discuss feeding concerns, review control options and screen for anxiety/depression. 6-week visit for an annual exam. consultation services are available to all mothers and babies for the first year after delivery.? To make an appointment, please call [phone]. Activity Level: Activity as Tolerated Discharge Diet: Regular Follow Up Appointments: [facility] [Provider Group] (2 weeks and 6 weeks ) Forms: [employer] Info Instructions
[2022-05-28 07:43] VITALS: BP 103/68; PULSE 66; RESP 16; TEMP 36.6; O2SAT 98
[2022-05-28] MEDS: IBUPROFEN 600 MG TABLET PO (08:15)
[2022-05-28] MEDS: DOCUSATE SODIUM 100 MG CAPSULE PO (08:20)
[2022-05-28] MEDS: MEASLES,MUMPS,RUBELLA VACC/PF 1 DOSE INJ 1 EACH SUBCUT (12:44)
== END 2022-05-28 15:50 | disposition home or self-care (01) | DRG 541 ==
LOC: OB OUT 00:27 → OB 00:27
PROVIDERS: Obstetrics & Gynecology; Admitting Provider Advanced Practice Midwife; Visit Provider Advanced Practice Midwife
PROC: 0UQG0ZZ Repair Vagina, Open Approach (ICD-10-PCS; principal; 2022-05-26 18:30)
DX: O70.1 Second degree perineal laceration during delivery (principal); Z3A.40 40 weeks gestation of pregnancy; Z37.0 Single live birth; D62 Acute posthemorrhagic anemia; O99.02 Anemia complicating childbirth; O73.1 Retained portions of placenta and membranes, without hemorrhage
CPT/HCPCS: 00940; 36415; 85018; 87635; 88305; 99140; 99213; A9270; J0690; J2250; J2590; J3010; J3490; J7120

== ENCOUNTER 2022-05-30 14:43 | Outpatient (CLI) | payer BC, SELFPAY ==
--- NOTE | 2022-06-18 17:39 | P.LACCB_ITS ---
Consult Note - Mom Date of Visit Date of visit: 05/30/22 wireless sales consultant: Cassandra Brambila Visit Code: Visit Patient's Information Phone number: [phone] : 1 Para: 1 Allergies seasonal Allergy (Mild, Uncoded 06/15/22 10:24) Congested Mother's Medical History: Medical History D&C after delivery Work Plans: returns to work in three months Delivery Information Delivery type: Vaginal Weeks Gestation: 40.6 Gestational Age: AGA Weight: 3.039 kg Discharge Weight: 2.952 kg Baby's Information Baby's Age at Visit: 4 days Baby's Provider or Clinic: Dr. Barry Jaundice: Yes (TSB = 14.9) Reason for Consult Reason for Consult: difficulty latching without the nipple shield Past Experience Past Experience: No Current Frequency of Day Feedings: about every three hours Frequency of Night Feedings: will go up to four hours between feedings Both Breasts: Yes (mom offers) Suck: fairly wide Latch: wide Length of Time: 15 - 20 min/side Pumping Pumping: Yes (randomly) Quantity Pumped: up to three oz total Supplementing EMB Supplement: No Formula Supplement: No Baby Elimination Number of Wet Diapers a Day: about 8 Number of BM a Day: about 4; yellow and seedy Breast/Nipple Condition Breast Information: WNL Engorgement: Yes Maternal Nipple Condition - Left: Common Nipple Maternal Nipple Condition - Right: Common Nipple Sore Nipples: No Onsite Pre-Feed weight: 3.068 kg Post-Feed weight: 3.164 kg Milk Transferred (mL): 96 Pre-Nursing Left Nipple: Within Normal Limits Pre-Nursing Right Nipple: Within Normal Limits Post-Nursing Left Nipple: Within Normal Limits Post-Nursing Right Nipple: Within Normal Limits Assessments/Interventions Assessments/Interventions: Met with mom and this now 4 day old ex- term AGA baby for consult.? Mom reports baby had an amazing first nursing session but wasn't able to latch at successive feedings until she was given a nipple shield.? Since then, he's been able to nurse at every feeding without any problems.? Mom reports he's nursing every 3 - 4 hours, she offers both sides. Nursing sessions last 25 - 30 minutes total.? She has pumped to comfort a few times and will sometimes get up to 3 oz total.? POC have not introduced a bottle. Breasts WNL- symmetrical with rounded lower quadrants, intramammary distance < 1.5 inches.? Nipples are everted and don't flatten or retract on compression, no damage noted. Baby has gained 116 grams since D/C and is already 29 grams above BW at DOL 4!? POC deny any caput/cephalohematoma and state baby has equal ROM when turning his head and moving his extremities.? Baby's palate is WNL.? His upper lip is easy to flange and there's no blanching of the gums, upper frenulum is WNL.? He has a fairly strong suck on a finger.? The tongue cups around the finger, extends past the gum line, and has good lateral movement with very little canoeing.? Lower frenulum is also WNL.? He's jaundiced to his umbilicus but his TSB in clinic was 14.9 (no treatment needed per [employer] but POC were instructed to wait for PCP's call). Suggested mom attempt to latch baby without the nipple shield and she was able to latch him without assistance to the right side after just a few attempts.? The latch was wide, deep, and mom was comfortable.? Baby nursed about 20 minutes, needing minimal stimulation to stay awake.? Mom was shown how to unlatch him, he was awakened, and she offered the left side.? Again after a few attempts he latched on without the shield and nursed 7 - 10 minutes.? He transferred 96 ml!? Plan: 1. Continue to nurse baby ALD, offering both sides each time.? Suggested she try latching him without the shield, but it's ok if he needs it.? She can try starting a feeding with it and remove it after a few minutes, or it might need to be used for the entire feeding.? Encouraged her to be patient with herself and baby. 2. Reviewed she may need to express/pump to soften her breasts before nursing if baby is having a hard time latching.? Also suggested she express/pump to comfort if needed after nursing.? As POC had a lot of questions about formula, suggested mom pump once/day or every few days and if needed they could use her EBM instead of formula (doubt this will be necessary). 3. No medical need to supplement so encourage POC to wait until he was about a month old to introduce the bottle.? 4. Will f/u for circumcision appointment in about a week and with PCP and for a one month visit on 06/25/22.? Meds Home Medications and Allergies Home Medications Medication Instructions Recorded Confirmed Type prenat.vits,joni,[id number]-sibil 1 tab PO QDAY 10/12/21 06/15/22 History ferrous sulfate 325 mg (65 mg 325 mg PO Q OTHER DAY 03/26/22 06/15/22 History iron) tablet Allergies Allergy/AdvReac Type Severity Reaction Status Date / Time seasonal Allergy Mild Congested Uncoded 06/15/22 10:24
== END 2022-05-30 14:44 | disposition home or self-care (01) ==
LOC: OB LAC 14:47
PROVIDERS: Visit Provider Advanced Practice Midwife
DX: Z39.1 Encounter for care and examination of lactating mother (principal)
CPT/HCPCS: 99211

== ENCOUNTER 2022-10-15 10:00 | Outpatient (RCR) | payer BC, SELFPAY | END 2023-02-12 23:59 | disposition home or self-care (01) | PROVIDERS: Visit Provider Advanced Practice Midwife | DX: R32 Unspecified urinary incontinence (principal); Z51.89 Encounter for other specified aftercare | CPT/HCPCS: 97110; 97140; 97162; 97535 ==

== ENCOUNTER 2023-08-06 14:21 | Outpatient (CLI) | payer BC, SELFPAY | END 2023-08-06 14:22 | disposition home or self-care (01) | LOC: NFLDREF 14:23 | PROVIDERS: Visit Provider Advanced Practice Midwife | DX: Z01.419 Encounter for gynecological examination (general) (routine) without abnormal findings (principal); Z13.6 Encounter for screening for cardiovascular disorders | CPT/HCPCS: 80061 ==

== ENCOUNTER 2024-11-26 13:25 | Outpatient (CLI) | payer BC, SELFPAY ==
--- NOTE | 2024-11-26 14:00 | CRLHL7_ITS ---
For Patients: As a result of the Century Cures Act, medical imaging exams and procedure reports are released immediately into your electronic medical record. You may view this report before your referring provider. If you have questions, please contact your health care provider. OB ULTRASOUND INDICATION: Dating and viability. TECHNIQUE: Real time grayscale imaging of the fetus was performed. Transvaginal. Transvaginal imaging performed to better demonstrate the endometrium and ovaries. LMP: 09/20/2024. ZACHARY by LMP: 06/27/2025. GA: 9 w, 4 d. Previous US: No. CRL: 3.3 cm. 10 w 1 d. ZACHARY: 06/23/2025. FHR: 167 BPM. Gestational sac: 4.5 cm. Appears within normal limits. Yolk sac: 3.7 mm. Appears within normal limits. Right ovary: 5.5 x 4.6 x 5.4 cm. Left ovary: 2.4 x 3.3 x 3.3 cm. CL. IMPRESSION: 1. Single living intrauterine measures 10 weeks 1 day and sonographic due date 06/23/2025. 2. Right ovarian dermoid is similar to 10/12/2021 and measures 4.8 x 3.5 x 4.3 cm. 3. Corpus luteal cyst left ovary. 4. Subchorionic hemorrhage measures 2.5 x 1.6 x 1.7 cm. Brannon Baig M.D. Diagnostic Radiologist [email or web address] NORBERT/hung persaud/Dictated by: Brannon Baig MD @ 11/27/2024 6:27:00 AM (Electronically Signed)
== END 2024-11-26 13:26 | disposition home or self-care (01) ==
LOC: US 13:26
PROVIDERS: Visit Provider Advanced Practice Midwife
DX: O34.11 Maternal care for benign tumor of corpus uteri, first trimester (principal); N83.12 Corpus luteum cyst of left ovary; O20.9 Hemorrhage in early pregnancy, unspecified; Z3A.10 10 weeks gestation of pregnancy
CPT/HCPCS: 76817; 83021; 86592; 86703; 86704; 86706; 86762; 86787; 86803; 86850; 87086; 87340

== ENCOUNTER 2024-11-26 14:27 | Outpatient (CLI) | payer BC, SELFPAY | END 2024-11-26 14:28 | disposition home or self-care (01) | PROVIDERS: Visit Provider Advanced Practice Midwife | DX: Z34.81 Encounter for supervision of other normal pregnancy, first trimester (principal) | CPT/HCPCS: 83020; 83021; 85660; 86592; 86703; 86704; 86706; 86762; 86787; 86803; 86850; 87086; 87340 ==

== ENCOUNTER 2025-02-10 08:21 | Outpatient (CLI) | payer BC, SELFPAY | END 2025-02-10 08:22 | disposition home or self-care (01) | LOC: US 08:21 | PROVIDERS: Visit Provider Advanced Practice Midwife | DX: O09.512 Supervision of elderly primigravida, second trimester (principal); Z3A.20 20 weeks gestation of pregnancy | CPT/HCPCS: 76811 ==